=== PATIENT | female | born 2000 | race Caucasian/White ===

== ENCOUNTER 2024-05-18 13:10 | Emergency (ER) | payer OTHER, SELFPAY ==
[2024-05-18 13:21] VITALS: BP 136/90; PULSE 102; RESP 16; TEMP 37.2; O2SAT 99
--- OUTSIDE RECORDS SUMMARY | 2024-05-18 13:21 | XMS_ITS | Clinical Summary ---
Author Organization [facility] Address [address] [place] [address] Care Team Providers Care Reproduction Artist Name Role Phone Unavailable Primary Care Provider Unavailabl e Source Comments [facility],non-owned Affiliates and Associated Physician Practices is amultiple site organization consisting of ambulatory clinics and hospital sitesin [place], [place], [place] and [place]. This disclosure is being madepursuant to the Care Everywhere program and may not contain all information available regarding this patient. Last updated 17.[facility] Allergies No known active allergies Medications Be aware that medications may not be up to date on this document. Always verify current medications with the patient. No known medications Social History Tobacco Use Types Packs/Day Years Used Date Smoking Tobacco: Never Smokeless Tobacco: Never Sex and Gender Information Value Date Recorded Sex Assigned at Not on file Gender Identity Not on file Sexual Orientation Not on file Last Filed Vital Signs Vital Sign Reading Time Taken Comments Blood Pressure 110/66 04/23/2017 2:48 PM CDT Pulse 125 04/23/2017 2:48 PM CDT Temperature 37.2 C (98.9 F) 04/23/2017 2:48 PM CDT Respiratory Rate 20 04/23/2017 2:48 PM CDT Oxygen Saturation 99% 04/23/2017 2:48 PM CDT Inhaled Oxygen Concentration - - Weight 98 kg (216 lb) 04/23/2017 2:48 PM CDT Height 167.6 cm (5' 6 ) 04/23/2017 2:48 PM CDT Body Mass Index 34.86 04/23/2017 2:48 PM CDT Plan of Treatment Health Maintenance Due Date Last Done Comments PAP SMEAR 1999 HIV SCREENING 09/10/2014 HPV VACCINE (1 - 3-dose series) 09/10/2014 CHLAMYDIA/GONORRHEA SCREENING 2015 HEPATITIS C SCREENING 09/06/2017 DTAP/TDAP/TD VACCINES (1 - Tdap) 09/10/2018 HEPATITIS B VACCINE (1 of 3 - 19+ 3-dose series) 09/10/2018 COVID-19 VACCINE (1 - 2023-2 5 season) 2023 DEPRESSION SCREENING 02/08/2024 INFLUENZA VACCINE (Season Ended) 2024 ZOSTER VACCINE (1 of 2) 09/10/2049 HIB VACCINE Aged Out No longer eligi ble based on patient's age to complete this topic MENINGOCOCCAL (Group B) VACC INE SHARED DECISION-MAKING Aged Out No longer eligibl e based on patient's age to complete this topic MENINGOCOCCAL GROUPS A/C/Y/W VACCINE Aged Out No longer eligible b ased on patient's age to complete this topic PNEUMOCOCCAL VACCINE Aged Out No long er eligible based on patient's age to complete this topic
--- OUTSIDE RECORDS SUMMARY | 2024-05-18 13:21 | XMS_ITS | Clinical Summary ---
Author Organization [facility] Address [address] [place] [address] Care Team Providers Care Supervisor Brooder Farm Name Role Phone Jackeline Stein [facility] Primary Care Provider + Allergies No known active allergies Medications lamoTRIgine (LAMICTAL) 100 MG tabletIndication s:Current moderate episode of major depressive disorder without prior episode (CMS/HCC),Mood swings Take 1 tablet (100 mg total) by mouth 2 (two) times daily. 180 tablet 05/23/2023 Active Active Problems Problem Noted Date Diagnosed Date Current moderate episode of major depressive disorder without prior episode 05/31/2023 Generalized anxiety disorder 05/31/2023 Mood swings 05/31/2023 Class 1 obesity due to exces s calories without serious comorbidity with body mass index (BMI) of 34.0 to 34.9 in adult 11/20/2018 Resolved Problems Problem Noted Date Diagnosed Date Resolved Date Well adult exam 11/20/2018 10/19/2019 Immunizations Name Administration Dates Next Due Dtap 05/25/2004, 1,03/14/2000,07/1999,1999 Fluzone 6 Months+ Quad (0.5 mL Prefilled Syringe) 02/02/2023,12/11/2019,11/20/2018 HPV4 (Gardasil) 04/20/2011, 1,10/13/2010,04/07 Hepatitis A (Havrix 720 [address].U) 07/10/2013 Hepatitis A Vaccine 07/10/2013,10/13/2010 Hepatitis B 03/14/2000,1999,1999 Hib (Generic) 09/20/2000, 1,01/13/2000,07/1999 Hib (PedvaxHIB)3 Dose 09/20/2000, 001,01/13/2000,07/1999 IPV/OPV 05/25/2004, 1,01/13/2000,07/1999 Influenza (Generic) 11/19/2016,12/21/2013 Influenza Adult (Generic) 11/19/2016,12/21/2013 MENINGOCOCCAL A C Y&W-135 oligosaccharide (MENVEO) 10/05/2016 MMR 05/25/2004,09/20/2000 MODERNA COVID-19 (12+) MRNA, LNP-S, PF, 100 MCG/ 0.5 ML DOSE 06/11/2020,05/14/2020 MODERNA COVID-19 (SENIOR ACCOUNT MANAGER ANISHA RYAN), MRNA, LNP-S, PF, 50 MCG/ 0.25 ML DOSE 08/11/2021 Meningcoccal Group B (Bexser o)(aka Meningitis) 07/28/2018 Meningococcal (Menactra) 11/20/2018 Meningococcal(Mcv 4)Aka Menactra 10/13/2010 Tdap (Adacel) 10/13/2010 Tdap (Generic) 09/03/2021 Varicella Vaccine 10/13/2010,12/12/2000 Family History Medical History Relation Comments Parkinson's Disease Maternal Grandfather Mental illness Mother bipolar disorder Paternal Aunt Relation Status Comments Father Alive Maternal Grandfather Mother Alive Paternal Aunt Other Social History Tobacco Use Types Packs/Day Years Used Date Smoking Tobacco: Never Passive Smoke Exposure: Never Smokeless Tobacco: Never Tobacco Cessation:Counseling Given: No Alcohol Use Standard Drinks/Week Comments No 0 (1 standard drink = 0.6 oz pur e alcohol) AUDIT-C Answer Date Recorded Frequency of Alcohol Consumption Never 11/20/2018 Average Number of Drinks Not on file 019 Frequency of Binge Drinking Not on file 11/07 PHQ-2 Answer Date Recorded Patient Health Questionnaire-2 Score 1 02/24/2023 Comments No Sex and Gender Information Value Date Recorded Sex Assigned at Not on file Legal Sex Female 7:22 PM CDT Gender Identity Not on file Sexual Orientation Not on file Last Filed Vital Signs Vital Sign Reading Time Taken Comments Blood Pressure 115/62 05/27/2023 3:37 PM CDT Pulse 70 05/27/2023 3:37 PM CDT Temperature 36.9 C (98.4 F) 05/27/2023 3:37 PM CDT Respiratory Rate 16 05/27/2023 3:37 PM CDT Oxygen Saturation 97% 05/27/2023 3:37 PM CDT Inhaled Oxygen Concentration - - Weight 111 kg (244 lb 12.8 oz) 05/27/2023 3:37 P M CDT Height 165.1 cm (5' 5 ) 05/27/2023 3:37 PM CDT Body Mass Index 40.74 05/27/2023 3:37 PM CDT Plan of Treatment Health Maintenance Due Date Last Done Comments Cervical Cancer Screening Pap Smear (Age 21 to 29) Every 3 Years 1999 Cervical Cancer Screening 1999 Hepatitis C 09/10/2017 Meningococcal B Vaccine (2 of 2 - Bexsero SCDM 2-dose series) 01/27/2019 07/28/2018 Annual Physical 08/18/2023 08/17/2022, 11/20/2018 COVID-19 Vaccine ( season) 2023 08/11/2021, 06/11/2020, 05/14/2020 PHQ-2 (Physician [place]) 02/08/2024 02/24/2023 DTaP, Tdap and Td Vaccines (8 - Td or Tdap) 09/04/2031 09/03/2021, 10/13/2010, 05/25/2004, Additional history exists Hepatitis B Vaccines Completed 03/14/2000, 1999, 1999 HPV Vaccines Completed 04/20/2011, 12/08, 10/13/2010, Additional history exists Meningococcal Vaccine Completed 11/20/2018, 017 Pneumococcal Vaccine: Pediatrics (0 to 5 Years) and At-Risk Patients (6 to 64 Years) Aged Out No longer eligible based on patient's age to complete this topic RSV Immunizations Under 20 Months Aged Out No longer eligible based on patient's age to complete this topic Insurance [address] [place] [id number] [place] [address] Care Teams Supervisor [employer] Relationship Specialty Start Date End Date Jackeline Stein, HYDRATOR OPERATOR- [id number], [address] [place], [place] [id number] PCP - General Nurse Practitioner Family 01/28/23
--- OUTSIDE RECORDS SUMMARY | 2024-05-18 13:21 | XMS_ITS | Encounter Summary ---
Author Organization [facility] Address [address] [place] [address] Care Team Providers Care Boiler Setter Name Role Phone Kristina Retana [facility] Primary Care Provider + Jackeline Stein [facility] Primary Care Provider + Encounter Details Date Type Department Care Team (Late st Contact Info) Description 01/02/2020 Cambiatta Message Enc [facility] Medical Group Family & Internal Medicine [address] [phone] [facility] Provider letter Social History Tobacco Use Types Packs/Day Years Used Date Smoking Tobacco: Never Smokeless Tobacco: Never Alcohol Use Standard Drinks/Week Comments No 0 (1 standard drink = 0.6 oz pur e alcohol) AUDIT-C Answer Date Recorded Frequency of Alcohol Consumption Never 11/20/2018 Average Number of Drinks Not on file 019 Frequency of Binge Drinking Not on file 11/07 Comments Unknown Sex and Gender Information Value Date Recorded Sex Assigned at Not on file Legal Sex Female 7:22 PM CDT Gender Identity Not on file Sexual Orientation Not on file COVID-19 Exposure Response Date Recorded In the last month, have you been in contact with someone who was confirmed or suspected to have Coronavirus / COVID-19? No / Unsure 12/11/2019 1:24 PM SENIOR ENVIRONMENTAL ENGINEER documented as of this encounter Plan of Treatment Not on file documented as of this encounter Visit Diagnoses Not on filedocumented in this encounter Care Teams Boiler Setter Relationship Specialty Start Date End Date Kristina Retana [facility] PCP - General Nurse Practitioner Family 11/20/18 Jackeline Stein, [facility] [address], [address] [place] [id number] PCP - General Nurse Practitioner Family 01/28/23 documented as of this encounter
--- OUTSIDE RECORDS SUMMARY | 2024-05-18 13:21 | XMS_ITS | Encounter Summary ---
Author Organization [facility] Address [address] [place] [address] Care Team Providers Care Gizzard Peeler Name Role Phone Kristina Retana [facility] Primary Care Provider + Jackeline Stein [facility] Primary Care Provider + Encounter Details Date Type Department Care Team (Late st Contact Info) Description 04/30/2022 Otonomy Message Enc [facility] Medical Group Family & Internal Medicine [address] [phone] [facility] Provider due for annual physical Social History Tobacco Use Types Packs/Day Years Used Date Smoking Tobacco: Never Smokeless Tobacco: Never Alcohol Use Standard Drinks/Week Comments No 0 (1 standard drink = 0.6 oz pur e alcohol) AUDIT-C Answer Date Recorded Frequency of Alcohol Consumption Never 11/20/2018 Average Number of Drinks Not on file 019 Frequency of Binge Drinking Not on file 11/07 PHQ-2 Answer Date Recorded PHQ-2 Score - If the patient scores above 3, please move on to questions 3-9 3 05/19/2021 Comments No Sex and Gender Information Value Date Recorded Sex Assigned at Not on file Legal Sex Female 7:22 PM CDT Gender Identity Not on file Sexual Orientation Not on file documented as of this encounter Plan of Treatment Not on file documented as of this encounter Visit Diagnoses Not on filedocumented in this encounter Additional Health Concerns Assessment Noted Time PHQ-9 Depression Total Score: 13 022 4:57 PM CDT documented as of this encounter Care Teams Gizzard Peeler Relationship Specialty Start Date End Date Kristina Retana, [facility] PCP - General Nurse Practitioner Family 11/20/18 Jackeline Stein, [facility] [address], [address] [place] [address] PCP - General Nurse Practitioner Family 01/28/23 documented as of this encounter
--- OUTSIDE RECORDS SUMMARY | 2024-05-18 13:21 | XMS_ITS | Encounter Summary ---
Author Organization [facility] Address [address] [place] [address] Care Team Providers Care Rack Puncher Name Role Phone [facility] + Encounter Details Date Type Department Care Team (Late st Contact Info) Description 03/10/2023 Brandfitters Message [facility] Multispecialty Care - [address] [place] [address] [employer], [facility] Provider lab results Social History Tobacco Use Types Packs/Day Years Used Date Smoking Tobacco: Never Passive Smoke Exposure: Never Smokeless Tobacco: Never Alcohol Use Standard [...] Assessment Noted Time PHQ-9 Depression Total Score: 6 02/24/19 24 10:21 AM EDUCATIONAL TECHNOLOGY COORDINATOR documented as of this encounter Care Teams Rack Puncher Relationship Specialty Start Date End Date Jackeline Stein FNP- [id number], [address] [place] [address] PCP - General Nurse Practitioner Family 01/28/23 documented as of this encounter
--- OUTSIDE RECORDS SUMMARY | 2024-05-18 13:21 | XMS_ITS | Encounter Summary ---
Author Organization [facility] Address [address] [place] [address] Care Team Providers Care Computer Network Engineer Name Role Phone Kristina Retana [facility] Primary Care Provider + Jackeline Stein [facility] Primary Care Provider + Encounter Details Date Type Department Care Team (Late st Contact Info) Description 08/20/2021 Undesk Message Enc [facility] Medical Group Family & Internal Medicine [address] [phone] Kristina Retana [place] [id number] [place] [address] Vaccination record Social History Tobacco Use Types Packs/Day Years [...] documented as of this encounter Care Teams Computer Network Engineer Relationship Specialty Start Date End Date Kristina Retana [facility] PCP - General Nurse Practitioner Family 11/20/18 Jackeline Stein, [facility] [address], [address] [place] [id number] PCP - General Nurse Practitioner Family 01/28/23 documented as of this encounter
--- NOTE | 2024-05-18 13:33 | ED.URI ---
HPI - URI/Sore Throat General Chief Complaint: Upper Respiratory Infection Stated Complaint: sinus irritation Time Seen by Provider: 05/18/24 13:33 Source: patient Mode of arrival: ambulatory Limitations: no limitations History of Present Illness HPI Narrative: 23-year-old female presents with complaint of nasal congestion, postnasal drainage, sinus pressure, sore throat and cough starting yesterday. Afebrile. Takes Zyrtec daily. Tried ydmz-eqd-lfxqzir DayQuil NyQuil to treat symptoms. No nausea vomiting diarrhea. no chest pain or shortness of breath. Patient leaving out of town in 5 days for vacation. All systems reviewed and negative except as noted above. Related Data Home Medications ?Medication ?Instructions ?Recorded ?Confirmed ?Last Taken ?Type hydroxyzine HCl 25 mg tablet mg 05/18/24 Unknown History lamotrigine 200 mg tablet mg 05/18/24 Unknown History Allergies Allergy/AdvReac Type Severity Reaction Status Date / Time No Known Drug Allergies Allergy Verified 03/07/11 21:37 Review of Systems Review of Systems: CONSTITUTIONAL: Denies fever, chills, or sweats. EYES: Denies visual changes, redness, or discharge. ENT: Reports rhinorrhea, congestion, sinus pressure, postnasal drainage, sore throat,. Denies otalgia. CARDIOVASCULAR: Denies chest pain, palpitations, or edema. RESPIRATORY: reports cough. Denies dyspnea. GASTROINTESTINAL: Denies abdominal pain, nausea, vomiting, or diarrhea. GENITOURINARY: Denies dysuria or hematuria. SKIN: Denies rash or itching. MUSCULOSKELETAL: Denies back pain, joint pain, or myalgia. NEUROLOGIC: Denies headache, numbness, or weakness. PSYCHIATRIC: Denies anxiety or depression. All other systems reviewed are negative, except as documented in HPI. PMFSH Comments At time of signature, agree with nursing past medical, surgical, social and family history. There is no relevant family history pertinent to the presenting complaint. Exam Narrative: GENERAL: This is a well-nourished, well-developed patient, in no apparent distress. HEAD: normocephalic, atraumatic. EYES: PERRL. Sclera clear/white. Vision is grossly intact. EARS: External ears normal, auditory canals clear and without drainage, fluid to bilateral TMs without erythema or perforation. Hearing grossly intact. NOSE: External nose normal with clear nasal drainage, mild erythema to bilateral nares THROAT: Mucous membranes moist, clear postnasal drainage without erythema, swelling or exudates. NECK: Neck supple, non-tender without lymphadenopathy, masses or thyromegaly. CARDIOVASCULAR: Regular rate and rhythm without murmurs, gallops, or rubs. RESPIRATORY: Clear to auscultation. Breath sounds equal bilaterally. No wheezes, rales, or rhonchi. SKIN: warm, Dry, intact with no suspicious lesions or rash, good texture and turgor. NEURO: awake, alert, and oriented to person, place and time. There were no obvious focal neurologic abnormalities. EXTREMITIES: No joint tenderness, effusion, or edema noted. Course Course Level of Care: Express Care Visit Vital Signs Vital signs: Vital Signs Temperature 37.2 C 05/18/24 13:21 Pulse Rate 102 H 05/18/24 13:21 Respiratory Rate 16 05/18/24 13:21 Blood Pressure 136/90 05/18/24 13:21 Pulse Oximetry 99 05/18/24 13:21 Oxygen Delivery Room Air 05/18/24 13:21 Temperature 37.2 C 05/18/24 13:21 Pulse Rate 102 H 05/18/24 13:21 Respiratory Rate 16 05/18/24 13:21 Blood Pressure 136/90 05/18/24 13:21 Pulse Oximetry 99 05/18/24 13:21 Oxygen Delivery Room Air 05/18/24 13:21 Reviewed MDM - URI/Sore Throat MDM Narrative Medical decision making narrative: negative COVID, influenza and strep. Strep culture ordered. Will wait for strep culture results prior to treating with antibiotics. Viral symptoms for 1 day. Recommend olfb-lhv-fovyewd medications to treat symptoms. Patient is well-appearing, nontoxic. Please be advised this is a medical document. It is intended for fhyf-cf-rqsb communication. It is written in medical language and may contain unfamiliar abbreviations or verbiage. Medical documents are intended to carry relevant information, facts as evident, and the clinical opinion of the practitioner at the time of the encounter. This report may have been done utilizing a voice recognition system. Attempts have been made to correct errors. However, there may be uncorrected grammatical, spelling, and recognition errors present. The file time of this note does not necessarily represent the time of service. Differential Diagnosis Differential diagnosis: Likely upper respiratory infection, sinusitis, viral infection, influenza and pharyngitis Lab Data Labs: Lab Results 05/18/24 Range/Units 13:32 POC Influenza A Ag Negative (Negative) POC Influenza B Ag Negative (Negative) POC SARS CoV-2 Ag Negative (Negative) POC Grp A Strep Screen Negative (Negative) Discharge Plan Discharge Clinical Impression: Acute viral sinusitis Patient Disposition: Home Condition: Stable Instructions: Rhinosinusitis (ED) Additional Instructions: your COVID, influenza and strep test was negative today. A strep culture was ordered and results will take 24-48 hours. If your culture is positive we will call you at that time and prescribed an antibiotic. Your symptoms are viral and may last 10-14 days. Take medications as prescribed. Continue taking Zyrtec daily. Purchase kvuh-dxi-skaufpl pseudoephedrine and take as directed on packaging. This medication is found behind the pharmacy counter. Purchase an zkcq-evp-udtovzc nasal spray such as Flonase or Nasacort and use as directed on packaging. Drink at least 64 oz water a day. Place cool mist humidifier in bedroom where you sleep. Follow-up with your doctor if symptoms are not improving. Patient Language: French Prescriptions: New benzonatate 200 mg capsule 200 mg PO TID PRN (Reason: cough) Qty: 20 0RF methylprednisolone [Medrol (Vignesh)] 4 mg tablets,dose pack See Rx Instructions PO .COMPLEX Qty: 21 0RF Rx Instructions: orally per package directions No Action lamotrigine 200 mg tablet hydroxyzine HCl 25 mg tablet Follow-up/Referrals: UNKNOWN,DOCTOR [Primary Care Provider] - Stand Alone Forms: Work/School Release IP Time of Disposition: 13:48
[2024-05-18 13:48] LABS: EDCOVIDSCREEN Negative (Negative); EDINFLUASCREEN Negative (Negative); EDINFLUBSCREEN Negative (Negative); EDSTREPNEGPOS1 Negative (Negative)
== END 2024-05-18 13:53 | disposition home or self-care (01) ==
PROVIDERS: Emergency Provider Nurse Practitioner Family
DX: J01.90 Acute sinusitis, unspecified (principal); Z20.822 Contact with and (suspected) exposure to COVID-19
CPT/HCPCS: 87081; 87426; 87804; 87880; 99203; G0463

== ENCOUNTER 2024-06-08 11:07 | Emergency (ER) | payer OTHER, SELFPAY ==
--- NOTE | 2024-06-08 11:16 | ED_ITS ---
HPI - URI/Sore Throat General Chief Complaint: Upper Respiratory Infection Stated Complaint: Sinus Infection Time Seen by Provider: 06/08/24 11:16 Source: patient Mode of arrival: ambulatory Limitations: no limitations History of Present Illness HPI Narrative: Here for URI symptoms x3 weeks. patient reports she was seen here 3 weeks ago for sinusitis. She reports symptoms initially were getting better and then returned with increased nasal drainage. She reports symptoms have been worse for her at the last week after traveling to [facility]. She reports symptoms include cough, headache, nasal drainage, eye watering, Feeling of pressure in right ear, post nasal drip, sore throat, hoarseness, nausea, and body aches. denies fever. Denies vomiting or diarrhea. Reports that at the last visit she was prescribed steroids and benzonatate. She reports benzonatate did not work for her cough. Related Data Home Medications ?Medication ?Instructions ?Recorded ?Confirmed ?Last Taken ?Type lamotrigine 200 mg tablet mg 05/18/24 Unknown History Allergies Allergy/AdvReac Type Severity Reaction Status Date / Time No Known Allergies Allergy Verified 06/08/24 11:22 Review of Systems Review of Systems: CONSTITUTIONAL: Denies fever, chills, or sweats. EYES: Denies visual changes, redness, or discharge. reports eye watering ENT: reports rhinorrhea, congestion, sore throat. denies otalgia, however endorses feeling pressure in right ear. CARDIOVASCULAR: Denies chest pain, palpitations, or edema. RESPIRATORY: Denies dyspnea. reports cough GASTROINTESTINAL: Denies abdominal pain, vomiting, or diarrhea. reports nausea. GENITOURINARY: Denies dysuria or hematuria. SKIN: Denies rash or itching. MUSCULOSKELETAL: Denies back pain, joint pain. endorses body aches. NEUROLOGIC: Denies numbness, or weakness. endorses headaches. PSYCHIATRIC: Denies anxiety or depression. All other systems reviewed are negative, except as documented in HPI. PMFSH Comments Reviewed Exam Narrative: GENERAL: This is a well-nourished, well-developed patient, in no apparent distress. HEAD: normocephalic, atraumatic. EYES: PERRL. Sclera injected. Vision is grossly intact. EARS: External ears normal, left auditory canals clear and without drainage; right EAC with erythema; right TM erythematous and bulging; left TM normal without perforation, +fluid line. Hearing grossly intact. NOSE: External nose normal with no obvious nasal discharge, nares with erythema and hypertrophy, + rhinorrhea. THROAT: Mucous membranes moist, posterior pharynx + PND NECK: Neck supple, non-tender without lymphadenopathy, masses or thyromegaly. + preauricular lymphadenopathy. CARDIOVASCULAR: Regular rate and rhythm without murmurs, gallops, or rubs. RESPIRATORY: Clear to auscultation. Breath sounds equal bilaterally. coughs. SKIN: warm, Dry, intact with no suspicious lesions or rash, good texture and turgor. NEURO: awake, alert, and oriented to person, place and time. There were no obvious focal neurologic abnormalities. EXTREMITIES: No joint tenderness, effusion, or edema noted. Course Course Level of Care: Express Care Visit Vital Signs Vital signs: reviewed MDM - URI/Sore Throat MDM Narrative Medical decision making narrative: Patient is aware of diagnosis, understands and agrees to treatment plan. Anticipatory guidance was given. Discussed physical exam findings with patient and reviewed prescriptions. Patient agrees to follow-up as directed and is aware of reasons to seek care at the emergency department. Discharge instructions were reviewed with the patient, as well as provided in writing per nursing staff. All questions have been answered, and the patient denies any further questions related to discharge or discharge plan. Discharge Plan Discharge Clinical Impression: Acute otitis media, right Sinusitis Qualifiers: Sinusitis location: maxillary Chronicity: acute Recurrence: non-recurrent Qualified Code(s): J01.00 - Acute maxillary sinusitis, unspecified Allergic rhinitis Qualifiers: Allergic rhinitis trigger: unspecified Allergic rhinitis seasonality: seasonal Qualified Code(s): J30.2 - Other seasonal allergic rhinitis Patient Disposition: Home Condition: Stable Instructions: Antibiotic Form, Sinusitis (ED), Ear Infection (ED), Allergies (ED), Acute Cough (ED) Additional Instructions: You were diagnosed with an acute sinus infection and a right ear infection. You were started on Augmentin which will cover both sinus infection and ear infection. Please start a daily allergy medication such as Zyrtec and Flonase. These medications are kfuz-ntz-[id number]. Follow printed instructions. Take medications as prescribed. Follow-up with your primary care provider. Patient Language: Slovak Prescriptions: New amoxicillin-pot clavulanate 875-125 mg tablet 1 tablet PO Q12H 10 Days Qty: 20 0RF fluticasone propionate [Children's Flonase Allergy Rlf] 50 mcg/actuation spray,suspension 2 spray intranasal DAILY Qty: 16 0RF Rx Instructions: administer into each nostril No Action lamotrigine 200 mg tablet Follow-up/Referrals: Emil,Jackeline Lopez APRN [Primary Care Provider] - Time of Disposition: 11:42
[2024-06-08 11:19] VITALS: BP 143/75; PULSE 95; RESP 18; TEMP 36.8; O2SAT 100
--- OUTSIDE RECORDS SUMMARY | 2024-06-09 12:29 | XMS_ITS | Encounter Summary ---
Author Organization [facility] Address [address] [place] [address] Care Team Providers Care Glass Designer Name Role Phone Kristina Retana [facility] Primary Care Provider + Jackeline Stein [facility] Primary Care Provider + Encounter Details Date Type Department Care Team (Late st Contact Info) Description 04/30/2022 Commerce Guys Message Enc [facility] Medical Group Family & Internal Medicine [address] [address] [facility] due for annual physical Social History [...] documented as of this encounter Care Teams Glass Designer Relationship Specialty Start Date End Date Kristina Retana, [facility] PCP - General Nurse Practitioner Family 11/20/18 Jackeline Stein, [facility] [address], [address] [place] [address] PCP - General Nurse Practitioner Family 01/28/23 documented as of this encounter
--- OUTSIDE RECORDS SUMMARY | 2024-06-09 12:29 | XMS_ITS | Clinical Summary ---
Author Organization [facility] Address [address] [place] [address] Care Team Providers Care Technology Manager Name Role Phone Unavailable Primary Care Provider Unavailabl e Source Comments [facility],non-owned Affiliates and Associated Physician Practices is amultiple site organization consisting of ambulatory clinics and hospital sitesin [place], [place], [place] and [place]. This disclosure is being madepursuant to the Care Everywhere program and may not contain all information available regarding this patient. Last updated 17.[facility] Allergies No known active allergies Medications * Be aware that medications may not be up to date on this document. Alwaysverify current medications with the patient. No known medications Social History Tobacco Use Types Packs/Day Years Used Date Smoking Tobacco: Never Smokeless Tobacco: Never Comments Unknown Sex and Gender Information Value Date Recorded Sex Assigned at Not on file Legal Sex Female 10:10 AM CDT Gender Identity Not on file Sexual [...] Health Maintenance Due Date Last Done Comments HIV SCREENING 09/10/2014 HPV VACCINE (1 - [...] patient's age to complete this topic Insurance EPI
--- OUTSIDE RECORDS SUMMARY | 2024-06-09 12:29 | XMS_ITS | Encounter Summary ---
Author Organization [facility] Address [address] [place] [address] Care Team Providers Care Cable Repairer Name Role Phone [facility] + Encounter Details Date Type Department Care Team (Late st Contact Info) Description 03/10/2023 Nephros Message [facility] Multispecialty Care - [address] [place] [address] Highlight, [facility] Provider lab results Social History [...] Total Score: 6 02/24/19 24 10:21 AM NEWS CAMERAMAN documented as of this encounter Care Teams Cable Repairer Relationship Specialty Start Date End Date Jackeline Stein FNP- [address], [address] [place] [address] PCP - General Nurse Practitioner Family 01/28/23 documented as of this encounter
--- OUTSIDE RECORDS SUMMARY | 2024-06-09 12:29 | XMS_ITS | Encounter Summary ---
Author Organization [facility] Address [address] [place] [address] Care Team Providers Care Sinter Machine Operator Name Role Phone Kristina Retana [facility] Primary Care Provider + Jackeline Stein [facility] Primary Care Provider + Encounter Details Date Type Department Care Team (Late st Contact Info) Description 08/20/2021 SaaSMAX Message Enc [facility] Medical Group Family & Internal Medicine [address] [address] Kristina Retana [place] [address] [place] [address] Vaccination record Social History Tobacco [...] documented as of this encounter Care Teams Sinter Machine Operator Relationship Specialty Start Date End Date Kristina Retana [facility] PCP - General Nurse Practitioner Family 11/20/18 Jackeline Stein, [facility] [address], [address] [place] [address] PCP - General Nurse Practitioner Family 01/28/23 documented as of this encounter
--- OUTSIDE RECORDS SUMMARY | 2024-06-09 12:29 | XMS_ITS | Clinical Summary ---
Author Organization [facility] Address [address] [place] [place] [address] Care Team Providers Care Casing Operator Name Role Phone Jackeline Stein [facility] Primary Care Provider + Allergies No known [...] Date Well adult exam 11/20/2018 10/19/2019 Immunizations Immunization Administration Dates Next Due Dtap 05/25/2004, 1,03/14/2000,07/1999,1999 [...] MCG/ 0.5 ML DOSE 06/11/2020,05/14/2020 MODERNA COVID-19 (SHIP FITTER ANISHA RYAN), MRNA, LNP-S, PF, 50 MCG/ [...] season) 2023 08/11/2021, 06/11/2020, 05/14/2020 PHQ-2 (Physician [place]) 02/08/2024 02/24/2023 DTaP, Tdap and Td Vaccines (8 - Td or Tdap) 09/04/2031 09/03/2021, 10/13/2010, 05/25/2004, Additional history exists Hepatitis B Vaccines Completed 03/14/2000, 1999, 1999 HPV Vaccines Completed 04/20/2011, 12/08, 10/13/2010, Additional history exists Meningococcal Vaccine Completed 11/20/2018, 017 Pneumococcal Vaccine: Pediatrics (0 to 5 Years) and At-Risk Patients (6 to 49 Years) Aged Out No longer eligible based on patient's age to complete this topic RSV Immunizations Under 20 Months Aged Out No longer eligible based on patient's age to complete this topic Insurance [address] [place], [place] [id number] [place] [address] Care Teams Casing Operator Relationship Specialty Start Date End Date Jackeline Stein, SERVICE ATTENDANT [place]- [address], [address] [place], [place] [id number] PCP - General Nurse Practitioner Family 01/28/23
--- OUTSIDE RECORDS SUMMARY | 2024-06-09 12:29 | XMS_ITS | Encounter Summary ---
Author Organization [facility] Address [address] [place] [address] Care Team Providers Care President And Ceo Name Role Phone Kristina Retana [facility] Primary Care Provider + Jackeline Stein [facility] Primary Care Provider + Encounter Details Date Type Department Care Team (Late st Contact Info) Description 01/02/2020 AccelGolf Message Enc [facility] Medical Group Family & Internal Medicine [address] [address] [facility] Provider letter Social History Tobacco Use Types [...] COVID-19? No / Unsure 12/11/2019 1:24 PM SUPERVISOR CONTACT AND SERVICE CLERKS documented as of this encounter Plan of Treatment Not on file documented as of this encounter Visit Diagnoses Not on filedocumented in this encounter Care Teams President And Ceo Relationship Specialty Start Date End Date Kristina Retana [facility] PCP - General Nurse Practitioner Family 11/20/18 Jackeline Stein, [facility] [address], [address] [place] [address] PCP - General Nurse Practitioner Family 01/28/23 documented as of this encounter
== END 2024-06-08 11:49 | disposition home or self-care (01) ==
PROVIDERS: Emergency Provider Nurse Practitioner; PCP Nurse Practitioner Family
DX: H66.91 Otitis media, unspecified, right ear (principal); J01.00 Acute maxillary sinusitis, unspecified; J30.2 Other seasonal allergic rhinitis
CPT/HCPCS: 99213; G0463

== ENCOUNTER 2024-09-16 11:16 | Emergency (ER) | payer OTHER, SELFPAY ==
--- OUTSIDE RECORDS SUMMARY | 2024-09-16 11:19 | XMS_ITS | Clinical Summary ---
Author Organization [facility] Address [address] [place] [address] Care Team Providers Care Lead Java Developer Architect Name Role Phone Kayden Leigh Primary Care Provider [phone] Allergies No known active allergies Medications amphetamine-dex troamphetamine XR (ADDERALL XR) 20 MG 24 hr capsule Take 1 capsule (20 mg total) by mouth every morning. 5 Active hydrOXYzine (ATARAX) 25 MG tablet Take 1 tablet (25 mg total) by mouth every 4 (four) hours as needed. 4 Active lamoTRIgine (LAMICTAL) 200 MG tablet Take 1 tablet (200 mg total) by mouth daily. 4 Active lamoTRIgine (LAMICTAL) 100 MG tabletIndicatio ns:Current moderate episode of major depressive disorder without prior episode (CMS/HCC),Mood swings Take 1 tablet (100 mg total) by mouth 2 (two) times daily. 180 tablet 4 09/06/19 25 Discontinu ed(Therapy completed) Active Problems Problem Noted Date Diagnosed Date Current moderate episode of major depressive disorder without prior episode 05/31/2023 Generalized anxiety disorder 05/31/2023 Mood swings 05/31/2023 Class 1 obesity due to exces s calories without serious comorbidity with body mass index (BMI) of 34.0 to 34.9 in adult 11/20/2018 Resolved Problems Problem Noted Date Diagnosed Date Resolved Date Well adult exam 11/20/2018 10/19/2019 Encounters Date Type Department Care Team Description 09/05/2024 9:00 AM CDT Office Visit [facility] Medical Group Family & Internal Medicine [facility] [address] [place] [address] Kayden Leigh PA Follow Up (Transfer care/); Blood Pressure Changes (Pt wanting BP checked and discussed) 09/05/2024 Travel from Last 3 Months Immunizations Immunization Administration Dates Next Due Dtap [...] MCG/ 0.5 ML DOSE 06/11/2020,05/14/2020 MODERNA COVID-19 (ADMITTING REPRESENTATIVE ANISHA RYAN), MRNA, LNP-S, PF, 50 MCG/ [...] Answer Date Recorded Patient Health Questionnaire-2 Score 2 09/05/2024 Comments No Sex and Gender Information Value Date Recorded Sex Assigned at Not on file Legal Sex Female 7:22 PM CDT Gender Identity Not on file Sexual Orientation Not on file Last Filed Vital Signs Vital Sign Reading Time Taken Comments Blood Pressure 132/86 09/05/2024 9:06 AM CDT Pulse 87 09/05/2024 9:06 AM CDT Temperature 37.1 C (98.8 F) 09/05/2024 9:06 AM CDT Respiratory Rate 16 09/05/2024 9:06 AM CDT Oxygen Saturation 99% 09/05/2024 9:06 AM CDT Inhaled Oxygen Concentration - - Weight 104.3 kg (230 lb) 09/05/2024 9:06 AM CDT Height 165.1 cm (5' 5) 09/05/2024 9:06 AM CDT Body Mass Index 38.27 09/05/2024 9:06 AM CDT Plan of Treatment Health Maintenance Due Date Last Done Comments Cervical Cancer Screening Pap Smear (Age 21 to 29) Every 3 Years 1999 Cervical Cancer Screening 1999 Hepatitis C 09/10/2017 Meningococcal B Vaccine (2 of 2 - Bexsero SCDM 2-dose series) 01/27/2019 07/28/2018 Annual Physical 08/18/2023 08/17/2022, 11/20/2018 COVID-19 Vaccine ( season) 2023 08/11/2021, 06/11/2020, 05/14/2020 DTaP, Tdap and Td Vaccines (8 - Td or Tdap) 09/04/2031 09/03/2021, 10/13/2010, 05/25/2004, Additional history exists Hepatitis B Vaccines Completed 03/14/2000, 1999, 1999 HPV Vaccines Completed 04/20/2011, 12/08, 10/13/2010, Additional history exists Meningococcal Vaccine Completed 11/20/2018, 017 PHQ-2 (Physician [place]) Completed 09/05/2024 Pneumococcal Vaccine: Pediatrics (0 to 5 Years) and At-Risk Patients (6 to 49 Years) Aged Out No longer eligible based on patient's age to complete this topic RSV Immunizations Under 20 Months Aged Out No longer eligible based on patient's age to complete this topic Insurance [employer] Care Teams Lead Java Developer Architect Relationship Specialty [place] [address] [place] [address] PCP - General PHYSICIAN AUDITOR IN CHARGE 08/18/24
--- OUTSIDE RECORDS SUMMARY | 2024-09-16 11:19 | XMS_ITS | Encounter Summary ---
Author Organization [facility] Address [address] [place] [address] Care Team Providers Care Rn Review Name Role Phone Kristina Retana [facility] Primary Care Provider + Jackeline Stein [facility] Primary Care Provider + Kayden Leigh Primary Care Provider Encounter Details Date Type Department Care Team (Late st Contact Info) Description 08/20/2021 TargetingMantrat Message Enc [facility] Medical Group Family & Internal Medicine [address] [address] Kristina Retana [facility] [address] [place] [address] Vaccination record Social History Tobacco [...] documented as of this encounter Care Teams Rn Review Relationship Specialty Start Date End Date Kristina Retana [facility] PCP - General Nurse Practitioner Family 11/20/18 Jackeline Stein, [facility] [address], [address] [place] [address] PCP - General Nurse Practitioner Family 01/28/2308/07 [place] [address] [place] [address] PCP - General PHYSICIAN STOCK CLERK 08/18/24 documented as of this encounter
--- OUTSIDE RECORDS SUMMARY | 2024-09-16 11:19 | XMS_ITS | Encounter Summary ---
Author Organization [facility] Address [address] [place] [address] Care Team Providers Care Seamer Name Role Phone Kristina Retana [facility] Primary Care Provider + Jackeline Stein [facility] Primary Care Provider + Kayden Leigh Primary Care Provider [phone] Encounter Details Date Type Department Care Team (Late st Contact Info) Description 04/30/2022 [employer] Message Enc [facility] Medical Group Family & Internal Medicine [address] [address] [facility] Provider due for annual physical [...] documented as of this encounter Care Teams Seamer Relationship Specialty Start Date End Date Kristina Retana [facility] PCP - General Nurse Practitioner Family 11/20/18 Jackeline Stein, [facility] [address], [address] [place] [address] PCP - General Nurse Practitioner Family 01/28/2308/07 [place] [address] [place] [address] PCP - General PHYSICIAN WHARF TENDER 08/18/24 documented as of this encounter
--- OUTSIDE RECORDS SUMMARY | 2024-09-16 11:19 | XMS_ITS | Encounter Summary ---
Author Organization [facility] Address [address] [place] [address] Care Team Providers Care Crop Or Grain Farmworker Name Role Phone Jackeline Stein [facility] Primary Care Provider + Kayden Leigh Primary Care Provider [phone] Encounter Details Date Type Department Care Team (Late st Contact Info) Description 03/10/2023 Taketake Message Enc [facility] Medical Group Multispecialty Care - [address] [place] [address] [employer], [facility] Provider lab results Social History Tobacco Use [...] Total Score: 6 02/24/19 24 10:21 AM MACHINE FILLER documented as of this encounter Care Teams Crop Or Grain Farmworker Relationship Specialty Start Date End Date Jackeline Stein, PIPELINE CONSTRUCTION INSPECTOR- [address], [address] [place] [address] PCP - General Nurse Practitioner Family 01/28/2308/07 [place] [address] [place] [address] PCP - General PHYSICIAN MINE LABORER 08/18/24 documented as of this encounter
--- OUTSIDE RECORDS SUMMARY | 2024-09-16 11:19 | XMS_ITS | Clinical Summary ---
Author Organization [facility] Address [address] [place] [address] Care Team Providers Care Central Supply Clerk Name Role Phone Unavailable Primary Care Provider Unavailabl e Source Comments [facility],non-owned Affiliates and Associated Physician Practices is amultiple site organization consisting of ambulatory clinics and hospital sitesin [place], [place], [place] and [place]. This disclosure is being madepursuant to the Care Everywhere program and may not contain all information available regarding this patient. Last updated 17.[facility] Allergies No known active allergies Medications * [...] 2:48 PM CDT Height 167.6 cm (5' 6) 04/23/2017 2:48 PM CDT Body Mass Index [...] season) 2023 DEPRESSION SCREENING 02/08/2024 INFLUENZA VACCINE (#1) 2024 ZOSTER VACCINE (1 of 2) 09/10/2049 [...]
--- OUTSIDE RECORDS SUMMARY | 2024-09-16 11:19 | XMS_ITS | Encounter Summary ---
Author Organization [facility] Address [address] [place] [address] Care Team Providers Care Drilling Assistant Name Role Phone Kristina Retana [facility] Primary Care Provider + Jackeline Stein [facility] Primary Care Provider + Kayden Leigh Primary Care Provider [phone] Encounter Details Date Type Department Care Team (Late st Contact Info) Description 01/02/2020 [employer] Message Enc [facility] Medical Group Family & Internal Medicine [address] [address] [facility] letter Social History Tobacco Use Types [...] COVID-19? No / Unsure 12/11/2019 1:24 PM FOLLOW UP SPECIALIST documented as of this encounter Plan of Treatment Not on file documented as of this encounter Visit Diagnoses Not on filedocumented in this encounter Care Teams Drilling Assistant Relationship Specialty Start Date End Date Kristina Retana, [facility] PCP - General Nurse Practitioner Family 11/20/18 Jackeline Stein, [facility] [address], [facility] [address] [place], [place] [id number] PCP - General Nurse Practitioner Family 01/28/2308/07 [place] [address] [address] [place], [place] [id number] PCP - General PHYSICIAN COMPUTER COMPOSITOR 08/18/24 documented as of this encounter
[2024-09-16 11:30] VITALS: BP 104/75; PULSE 94; RESP 18; TEMP 36.8; O2SAT 100
[2024-09-16 11:39] LABS: EDSTREPNEGPOS1 Negative (Negative)
--- NOTE | 2024-09-16 11:46 | ED.URI ---
HPI - URI/Sore Throat General Chief Complaint: Upper Respiratory Infection Stated Complaint: Sore throat Time Seen by Provider: 09/16/24 11:46 History of Present Illness HPI Narrative: 24-year-old female presented for complaint of sore throat. Onset last night. Endorses intermittent headache. She denies any associated nasal congestion, nausea vomiting, fevers or chills. Took ibuprofen for symptoms. Denies sick contacts. Related Data Home Medications ?Medication ?Instructions ?Recorded ?Confirmed ?Last Taken ?Type lamotrigine 200 mg tablet mg 05/18/24 Unknown History Allergies Allergy/AdvReac Type Severity Reaction Status Date / Time No Known Allergies Allergy Verified 09/16/24 11:38 Review of Systems Review of Systems: CONSTITUTIONAL: Denies body aches, fever, chills, or sweats. EYES: Denies visual changes, redness, or discharge. ENT: reports sore throat Denies rhinorrhea, congestion, or otalgia. CARDIOVASCULAR: Denies chest pain, palpitations, or edema. RESPIRATORY: Denies dyspnea. GASTROINTESTINAL: Denies abdominal pain, nausea, vomiting, or diarrhea. SKIN: Denies rash NEUROLOGIC: reports headache Exam Narrative: GENERAL: well-appearing, no acute distress. EYES: conjunctivae clear ENT: Mucous membranes moist. TM pearly so with normal light reflex bilaterally; no tragal tenderness. Oropharynx mildly erythematous without lesions. Tonsils enlarged 1+ and without exudate. No drooling, no hoarseness, no trismus, uvula midline. No tripod positioning, hot potato voice, or soft palate swelling. NECK: Supple. No lymphadenopathy CHEST: Clear to auscultation, breath sounds equal. No respiratory distress, speaks in full sentences. HEART: Regular rate and rhythm. No murmur heard. SKIN: Warm, dry, no rash. NEURO: Alert and oriented x3. Course Course Emergency Course: Patient is aware of diagnosis, understands and agrees to treatment plan. Anticipatory guidance given. Patient agrees to follow-up as directed and is aware of reasons to seek care at the emergency department. Portions of this record may have been created with voice recognition software Level of Care: Express Care Visit Vital Signs Vital signs: Vital Signs Temperature 98.2 F 09/16/24 11:30 Pulse Rate 94 09/16/24 11:30 Respiratory Rate 18 09/16/24 11:30 Blood Pressure 104/75 09/16/24 11:30 Pulse Oximetry 100 09/16/24 11:30 Oxygen Delivery Room Air 09/16/24 11:30 Temperature 98.2 F 09/16/24 11:30 Pulse Rate 94 09/16/24 11:30 Respiratory Rate 18 09/16/24 11:30 Blood Pressure 104/75 09/16/24 11:30 Pulse Oximetry 100 09/16/24 11:30 Oxygen Delivery Room Air 09/16/24 11:30 MDM - URI/Sore Throat MDM Narrative Medical decision making narrative: Negative strep result reviewed with pt. Advise supportive treatments. Patient is appropriate for outpatient treatment and follow-up. Differential Diagnosis Differential diagnosis: Likely upper respiratory infection, viral infection and pharyngitis Lab Data Labs: Lab Results 09/16/24 Range/Units 11:37 POC Grp A Strep Screen Negative (Negative) Discharge Plan Discharge Clinical Impression: Pharyngitis Patient Disposition: Home Condition: Stable Instructions: Antibiotic Form, Pharyngitis (ED) Additional Instructions: Rapid strep swab was negative today You will be notified in a few days if the culture comes back positive for strep, and appropriate antibiotics will be called in at that time. if symptoms are due to a viral illness, it is not treated with antibiotics. Viral symptoms can be present for up to 10-14 days. Recommendations: Tylenol every 8 hours as needed for pain/fever Soft foods, cool liquids, warm tea. Gargle with warm saltwater twice a day. Chloraseptic spray and throat lozenges. Flonase spray and Zyrtec if you have sinus congestion Rest and stay hydrated. --Follow up with your PCP --Go to the ER immediately if you cannot swallow your saliva, trouble breathing/wheezing, throat swelling, pain is persistent and severe Patient Language: Upper Sorbian Prescriptions: No Action lamotrigine 200 mg tablet Follow-up/Referrals: Reese,LIZ Parra [Primary Care Provider] - Time of Disposition: 11:52
== END 2024-09-16 11:54 | disposition home or self-care (01) ==
PROVIDERS: Emergency Provider Nurse Practitioner Family; PCP Physician Assistant
DX: J02.9 Acute pharyngitis, unspecified (principal)
CPT/HCPCS: 87081; 87880; 99213; G0463